=== PATIENT | female | born 1965 | race Caucasian/White ===

== ENCOUNTER 2025-06-07 06:05 | Day surgery (SDC) | payer BC ==
[2025-06-06 11:37] VITALS: BMI 31.0
[2025-06-07] MEDS ORDERED: BUPIVACAINE HCL/PF 0.25% (2.5MG/ML) 10 ML VIAL ONE (07:36)
[2025-06-07] MEDS ORDERED: LIDOCAINE 1%/EPI 1:100000 (20 ML MULTI DOSE VIAL) ONE (07:36)
[2025-06-07] MEDS ORDERED: ROCURONIUM BROMIDE 50 MG/5 ML SYRINGE ONE (07:57)
[2025-06-07] MEDS ORDERED: LIDOCAINE HCL/PF 2% SDV 5ML VIAL ONE (07:57)
[2025-06-07] MEDS ORDERED: MIDAZOLAM HCL 2 MG/2 ML SINGLE DOSE VIAL ONE (07:57)
[2025-06-07] MEDS ORDERED: SUCCINYLCHOLINE CHLORIDE 200 MG/10 ML SYRINGE ONE (07:57)
[2025-06-07] MEDS ORDERED: PROPOFOL 20 ML ONE (07:57)
[2025-06-07] MEDS ORDERED: DEXAMETHASONE SOD PHOSPHATE 4 MG/1 ML VIAL ONE (08:06)
[2025-06-07] MEDS ORDERED: ONDANSETRON 4 MG/2 ML VIAL ONE (08:06)
[2025-06-07] MEDS ORDERED: ONDANSETRON 4 MG/2 ML VIAL IVPUSH PRN (08:31)
[2025-06-07] MEDS ORDERED: LACTATED RINGERS SOLUTION 1,000 ML IV SCH (08:45)
[2025-06-07] MEDS: ACETAMINOPHEN INJECTION 100 ML ONE (09:26)
[2025-06-07] MEDS: ACETAMINOPHEN 1000 MG/100 ML BAG IVPB ONE (09:26)
[2025-06-07 10:42] VITALS: RESP 18; TEMP 97.2
[2025-06-07 10:44] VITALS: BP 130/70; PULSE 78
== END 2025-06-07 11:00 | disposition home or self-care (01) ==
LOC: JASU-SURG 06:05
PROVIDERS: ATTEND Otolaryngology
PROC: 0CB40ZZ Excision of Buccal Mucosa, Open Approach (ICD-10-PCS; principal; 2025-06-07 08:00)
DX: D10.39 Benign neoplasm of other parts of mouth (principal)
CPT/HCPCS: 88305-TC; 94760